=== PATIENT | male | born 1940 | race Caucasian/White ===

== ENCOUNTER 2024-05-12 04:59 | Inpatient (IN) | payer MEDICARE ==
[2024-05-12] VITALS (9 sets, daily range): BP systolic 92–137; BP diastolic 60–84; PULSE 68–88; RESP 16–21; TEMP 97.1–97.4; O2SAT 98–100
[~2024-05-12] VITALS: Ht 167.6 cm; Wt 64.0 kg
[~2024-05-12 04:59] MED LIST: APIX5TAB3 PO; EZET10TA48 PO; METO50TA16 PO
[2024-05-12] MEDS: aspirin 81mg tab.chew PO ONE (05:08)
[2024-05-12 05:46] LABS: BASOPHILS % (AUTO) 0.4 % (0-1); EOSINOPHILS # (AUTO) 0.1 X10'3 (0-0.9); EOSINOPHILS % (AUTO) 2.2 % (0-6); HEMATOCRIT 44.9 % (42.0-52.0); LYMPHOCYTES # (AUTO) 1.9 X10'3 (1.1-4.8); LYMPHOCYTES % (AUTO) 27.9 % (21-51); MEAN CORPUSCULAR HEMOGLOBIN 30.1 PG (27.0-31.0); MEAN CORPUSCULAR HGB CONC 33.4 g/dL (33.0-36.5); MEAN CORPUSCULAR VOLUME 90.1 FL (78-98); MEAN PLATELET VOLUME 7.2 FL (7.4-10.4); MONOCYTES # (AUTO) 0.6 X10'3 (0-0.9); MONOCYTES % (AUTO) 9.6 % (2-12); NEUTROPHILS % (AUTO) 59.9 % (42-75); PLATELET COUNT 170 X10'3 (140-440); RED BLOOD COUNT 4.98 X10'6 (4.70-6.10); RED CELL DISTRIBUTION WIDTH 12.8 % (11.5-14.5); WHITE BLOOD COUNT 6.7 X10'3 (4.5-11.0)
[2024-05-12 06:01] LABS: ALANINE AMINOTRANSFERASE 66 U/L (12-78); ALBUMIN 4.1 G/DL (3.4-5.0); ALBUMIN/GLOBULIN RATIO 1.5 (1.1-1.5); ALKALINE PHOSPHATASE 70 IU/L (46-116); ANION GAP 8 (8-16); ASPARTATE AMINO TRANSFERASE 43 U/L (10-37); BILIRUBIN,TOTAL 0.8 MG/DL (0.1-1.0); BLOOD UREA NITROGEN 18 MG/DL (7-18); BUN/CREATININE RATIO 14.6 (10.0-20.0); CALCIUM 9.6 MG/DL (8.5-10.1); CHLORIDE 101 MMOL/L (99-107); CREATININE 1.23 MG/DL (0.60-1.10); GLUCOSE 101 MG/DL (70-104); POTASSIUM 3.9 MMOL/L (3.5-5.1); SODIUM 137 MMOL/L (135-145); TOTAL CARBON DIOXIDE 28.2 MMOL/L (24-32); TOTAL PROTEIN 6.9 G/DL (6.4-8.2); eCRCL 40 ML/MIN; eGFR 56 ML/MIN
[2024-05-12 06:09] LABS: MAGNESIUM 1.7 MG/DL (1.5-2.4); PRO BRAIN NATRIURETIC PEPTIDE 1452 PG/ML (0-450)
[2024-05-12] MEDS ORDERED: heparin 10,000 units/1 ML INJ IV PRN (06:15)
[2024-05-12] MEDS: MESSAGE TO NURSING IV ONE ×2 (06:30→15:03)
[2024-05-12] MEDS: heparin 10,000 units/1 ML INJ IV ONE (07:06)
[2024-05-12] MEDS: heparin 25,000 UNIT/250ml bag 250 ML IV PRN (07:11)
[2024-05-12] MEDS ORDERED: furosemide 10 MG/1 ML 10ml inj IV SCH (08:00)
[2024-05-12 08:05] LABS: APTT 29 SECONDS (22-32); INR 1.2 INR; PROTHROMBIN TIME 12.1 SECONDS (9.0-12.0)
[2024-05-12 08:21] LABS: D-DIMER 0.31 MG/L FEU (0-0.50)
[2024-05-12 08:23] LABS: HEMOGLOBIN A1C 5.5 % (4.5-6.2)
[2024-05-12 08:31] LABS: CREATINE KINASE 67 U/L (39-308); LIPASE 27 U/L (16-77); THYROID STIMULATING HORMONE 2.67 ulU/ml (0.34-4.50)
[2024-05-12] MEDS ORDERED: ROSU40TA PO (09:05)
[2024-05-12] MEDS: aspirin 81mg tab.chew PO SCH (09:06)
[2024-05-12] MEDS ORDERED: verapamil 2.5 mg/ml inj IV ONE (15:17)
[2024-05-12] MEDS ORDERED: iohexol 350MG/ML 100ml bottle IV ONE ×2 (15:17→16:26)
[2024-05-12] MEDS ORDERED: fentaNYL/PF 50MCG/1 ML 2ML syringe ONE (15:17)
[2024-05-12] MEDS ORDERED: LIDOcaine 1% (10mg/ml) 2ml vial ONE (15:17)
[2024-05-12] MEDS ORDERED: heparin 1,000unit/ml 10ml vial 10 ML ONE (15:17)
[2024-05-12] MEDS ORDERED: midazolam 1 mg/ML 2ml injection ONE (15:17)
[2024-05-12] MEDS ORDERED: nitroGLYCERIN 500mcg/5mL D5W 5 ML IV ONE ×2 (15:18→17:02)
[2024-05-12] MEDS ORDERED: aspirin 325mg tablet ONE (16:24)
[2024-05-12] MEDS ORDERED: clopidogrel 300mg tablet ONE (16:24)
[2024-05-12] MEDS ORDERED: ondansetron/PF 4mg/2ml inj IV PRN (21:25)
[2024-05-12] MEDS ORDERED: morphine 2 MG/ML inj. syringe IV PRN (22:40)
[2024-05-12] MEDS: acetaminophen 325mg tablet PO PRN (22:57)
[2024-05-13] VITALS (9 sets, daily range): BP systolic 101–148; BP diastolic 67–92; PULSE 83–93; RESP 14–25; TEMP 97.2–97.8; O2SAT 96–100
[2024-05-13 01:38] LABS: BASOPHILS % (AUTO) 0.1 % (0-1); EOSINOPHILS % (AUTO) 0.1 % (0-6); HEMATOCRIT 45.8 % (42.0-52.0); HEMOGLOBIN 14.8 g/dl (14.0-17.9); LYMPHOCYTES # (AUTO) 1.1 X10'3 (1.1-4.8); LYMPHOCYTES % (AUTO) 5.3 % (21-51); MEAN CORPUSCULAR HEMOGLOBIN 29.1 PG (27.0-31.0); MEAN CORPUSCULAR HGB CONC 32.2 g/dL (33.0-36.5); MEAN CORPUSCULAR VOLUME 90.1 FL (78-98); NEUTROPHILS # (AUTO) 17.3 X10'3 (1.8-7.7); NEUTROPHILS % (AUTO) 84.5 % (42-75); PLATELET COUNT 244 X10'3 (140-440); RED BLOOD COUNT 5.08 X10'6 (4.70-6.10); RED CELL DISTRIBUTION WIDTH 12.9 % (11.5-14.5); WHITE BLOOD COUNT 20.5 X10'3 (4.5-11.0)
[2024-05-13 01:49] LABS: ALBUMIN 3.8 G/DL (3.4-5.0); ANION GAP 13 (8-16); BLOOD UREA NITROGEN 17 MG/DL (7-18); BUN/CREATININE RATIO 10.8 (10.0-20.0); CALCIUM 9.5 MG/DL (8.5-10.1); CHLORIDE 97 MMOL/L (99-107); CHOL/HDL RATIO 2.1 (0.00-4.99); CHOLESTEROL 103 MG/DL (0-200); CREATININE 1.58 MG/DL (0.60-1.10); GLUCOSE 164 MG/DL (70-104); HDL CHOLESTEROL 48 MG/DL (35-60); LDL CHOLESTEROL 45 MG/DL (50-100); SODIUM 134 MMOL/L (135-145); TOTAL CARBON DIOXIDE 23.8 MMOL/L (24-32); TRIGLYCERIDES 86 MG/DL (20-135); eCRCL 31 ML/MIN; eGFR 42 ML/MIN
[2024-05-13 01:51] LABS: POTASSIUM 4.6 MMOL/L (3.5-5.1)
[2024-05-13 01:56] LABS: MAGNESIUM 1.6 MG/DL (1.5-2.4)
[2024-05-13] MEDS: metoprolol tartrate 50mg tablet PO SCH (07:38)
[2024-05-13] MEDS: ezetimibe 10mg tablet PO SCH (07:38)
[2024-05-13] MEDS: pantoprazole 40mg Tablet.DR PO SCH (07:38)
[2024-05-13] MEDS: clopidogrel 75mg tablet PO SCH (07:38)
[2024-05-13] MEDS ORDERED: PERFLUTREN PROTEIN-A MICROSPHR (Optison) 0.22 MG/ML 3ML VIAL IV ONE (14:20)
[2024-05-13] MEDS: pneumococcal 23-VAL P-sac vacc 25 mcg/0.5ml vial IMVAC ONE (17:32)
[2024-05-13] MEDS: furosemide 20MG tablet PO ONE (19:32)
[2024-05-14] VITALS (7 sets, daily range): BP systolic 125–148; BP diastolic 61–93; PULSE 75–97; RESP 16–24; TEMP 97.3–98.7; O2SAT 93–100
[2024-05-14 05:22] LABS: BASOPHILS % (AUTO) 0 % (0-1); EOSINOPHILS % (AUTO) 0 % (0-6); HEMATOCRIT 40.9 % (42.0-52.0); HEMOGLOBIN 13.7 g/dl (14.0-17.9); LYMPHOCYTES # (AUTO) 1.2 X10'3 (1.1-4.8); MEAN CORPUSCULAR HEMOGLOBIN 30.2 PG (27.0-31.0); MEAN CORPUSCULAR HGB CONC 33.4 g/dL (33.0-36.5); MEAN CORPUSCULAR VOLUME 90.5 FL (78-98); MEAN PLATELET VOLUME 7.4 FL (7.4-10.4); MONOCYTES # (AUTO) 3.1 X10'3 (0-0.9); MONOCYTES % (AUTO) 12.8 % (2-12); NEUTROPHILS # (AUTO) 19.8 X10'3 (1.8-7.7); NEUTROPHILS % (AUTO) 82.2 % (42-75); PLATELET COUNT 191 X10'3 (140-440); RED BLOOD COUNT 4.52 X10'6 (4.70-6.10); RED CELL DISTRIBUTION WIDTH 13.1 % (11.5-14.5); WHITE BLOOD COUNT 24.1 X10'3 (4.5-11.0)
[2024-05-14] MEDS ORDERED: PERFLUTREN PROTEIN-A MICROSPHR (Optison) 0.22 MG/ML 3ML VIAL IV ONE ×2 (07:25→09:00)
[2024-05-14] MEDS: furosemide 20MG tablet PO SCH (07:35)
[2024-05-14 11:50] LABS: BILIRUBIN,URINE NEGATIVE (Neg); CLARITY,URINE SLIGHTLY CLOUDY (Clear); COLOR,URINE YELLOW (Yellow); GLUCOSE, URINE NEGATIVE (Neg); KETONES,URINE TRACE mg/dl (Neg); LEUKOCYTE ESTERASE ,URINE NEGATIVE (Neg); NITRITES, URINE NEGATIVE (Neg); OCCULT BLOOD,URINE MODERATE (Neg); PH,URINE 5.5 (4.8-8.0); PROTEIN,URINE TRACE mg/dl (Neg); UROBILINOGEN,URINE 0.2 E.U/dL (0.2-1.0)
[2024-05-14 11:57] LABS: UA COLLECTION TYPE NON-SPECIFIED
[2024-05-14 11:58] LABS: MUCUS STRANDS FEW /LPF (Neg); SQUAMOUS EPITHELIAL CELL,UR MANY /LPF (FEW)
[2024-05-14 11:59] LABS: FINE GRANULAR CAST 0-3 /LPF (NEGATIVE)
[2024-05-14 12:00] LABS: WBC,URINE 0-4 /HPF (0-4)
[2024-05-14 12:01] LABS: AMORPHOUS URATES 2+
[2024-05-14 12:02] LABS: BACTERIA,URINE FEW /HPF (Neg); RBC,URINE 0-2 /HPF (0-2)
[2024-05-14] MEDS: apixaban 5mg tablet PO SCH (20:42)
[2024-05-15 02:00] VITALS: BP 134/78; PULSE 93; RESP 18; TEMP 98.5; O2SAT 94
[2024-05-15 06:00] VITALS: BP 120/68; PULSE 83; RESP 16; TEMP 98.2; O2SAT 96
[2024-05-15 06:06] LABS: BASOPHILS % (AUTO) 0.1 % (0-1); EOSINOPHILS % (AUTO) 0.1 % (0-6); HEMOGLOBIN 12.4 g/dl (14.0-17.9); LYMPHOCYTES # (AUTO) 1.2 X10'3 (1.1-4.8); LYMPHOCYTES % (AUTO) 8.6 % (21-51); MEAN CORPUSCULAR HEMOGLOBIN 29.9 PG (27.0-31.0); MEAN CORPUSCULAR HGB CONC 33.5 g/dL (33.0-36.5); MEAN CORPUSCULAR VOLUME 89.2 FL (78-98); MEAN PLATELET VOLUME 7.5 FL (7.4-10.4); MONOCYTES # (AUTO) 1.5 X10'3 (0-0.9); MONOCYTES % (AUTO) 10.5 % (2-12); NEUTROPHILS # (AUTO) 11.3 X10'3 (1.8-7.7); NEUTROPHILS % (AUTO) 80.7 % (42-75); PLATELET COUNT 143 X10'3 (140-440); RED BLOOD COUNT 4.15 X10'6 (4.70-6.10); WHITE BLOOD COUNT 13.9 X10'3 (4.5-11.0)
[2024-05-15] MEDS: metoprolol succinate 25mg (24-HOUR) SR. Tablet PO SCH (08:44)
[2024-05-15] MEDS: ROSUVASTATIN CALCIUM 5 MG TABLET PO SCH (08:47)
[2024-05-15] MEDS ORDERED: LOSA50TA64 PO (11:54)
[2024-05-15] MEDS ORDERED: FURO20TA4 PO (11:54)
[2024-05-15] MEDS ORDERED: CLOP75TA34 PO (11:54)
[2024-05-15] MEDS ORDERED: METO-395 PO (11:54)
== END 2024-05-15 12:37 | disposition home health service (06) | DRG 323 ==
LOC: ER 05:00 → ED HOLD 07:48 → PCU 3S 18:25
PROVIDERS: ADMIT Family Medicine; ATTEND Family Medicine
PROC: 027035Z Dilation of Coronary Artery, One Artery with Two Drug-eluting Intraluminal Devices, Percutaneous Approach (ICD-10-PCS; principal; 2024-05-12)
PROC: 02F03ZZ Fragmentation in Coronary Artery, One Artery, Percutaneous Approach (ICD-10-PCS; 2024-05-12)
PROC: 4A023N7 Measurement of Cardiac Sampling and Pressure, Left Heart, Percutaneous Approach (ICD-10-PCS; 2024-05-12)
PROC: B2111ZZ Fluoroscopy of Multiple Coronary Arteries using Low Osmolar Contrast (ICD-10-PCS; 2024-05-12)
DX: I21.4 Non-ST elevation (NSTEMI) myocardial infarction (principal); I50.33 Acute on chronic diastolic (congestive) heart failure; I16.1 Hypertensive emergency; E78.5 Hyperlipidemia, unspecified; I11.0 Hypertensive heart disease with heart failure; I25.10 Atherosclerotic heart disease of native coronary artery without angina pectoris; I73.9 Peripheral vascular disease, unspecified; Z86.73 Personal history of transient ischemic attack (TIA), and cerebral infarction without residual deficits; I25.2 Old myocardial infarction; Z79.01 Long term (current) use of anticoagulants; Z79.899 Other long term (current) drug therapy; Z88.8 Allergy status to other drugs, medicaments and biological substances
CPT/HCPCS: 93306; 93308; 99291; C9600; 36415; 71045; 76937; 80048; 80053; 80061; 81001; 82550; 82948; 83036; 83690; 83735; 83880; 84145; 84443; 84484; 85025; 85347; 85379; 85610; 85730; 87081; 93005; 99152; 99153; A4615; A6258; C1725; C1751; C1769; C1874; C1887; C1894; G0378; J1644; J2250; J3010; J3490; Q9956; Q9967